=== PATIENT | male | born 1965 | race African-American/Black ===

== ENCOUNTER 2020-09-27 11:09 | Emergency (ER) | payer MEDICAID, OTHER ==
[~2020-09-27] VITALS: Ht 182.9 cm; Wt 72.6 kg
[~2020-09-27 11:09] MED LIST: CARI250T; HYDR-1421
[2020-09-27 12:45] VITALS: BP 128/68
[2020-09-27] MEDS ORDERED: traMADol HCL 50 MG TAB PO ONE (14:00)
== END 2020-09-27 15:42 | disposition home or self-care (01) ==
LOC: ER 11:09
DX: M54.31 Sciatica, right side (principal); F17.210 Nicotine dependence, cigarettes, uncomplicated
CPT/HCPCS: 72100; 73502